=== PATIENT | male | born 1990 | race Caucasian/White ===

== ENCOUNTER 2020-03-20 05:10 | Inpatient (IN) | payer OTHER ==
[~2020-03-20] VITALS: Ht 177.8 cm; Wt 90.7 kg
[2020-03-20 05:12] VITALS: BP 122/78
[2020-03-20] MEDS ORDERED: PROAIR HFA8.5 GM INH (05:21)
[2020-03-20 05:47] LABS: HEMATOCRIT 46.4 % (42.0-52.0); HEMOGLOBIN 16.3 gm/dL (14.0-18.0); MCH 31.4 pg (26.0-34.0); MCHC 35.1 g/dL (28.0-37.0); MCV 89.4 fL (80.0-100.0); PLATELET COUNT 256 thou/uL (150-400); RDW 12.7 % (10.5-14.5); WBC 17.4 thou/uL (4.0-11.0)
[2020-03-20 05:55] LABS: CALCIUM 8.7 mg/dL (8.5-10.1); CREATININE 0.8 mg/dL (0.7-1.3); POTASSIUM 3.6 mmol/L (3.5-5.1)
[2020-03-20 06:01] LABS: ALBUMIN 3.1 g/dL (3.4-5.0); TOTAL BILIRUBIN 1.2 mg/dL (0.2-1.0); TOTAL PROTEIN 7.8 g/dL (6.4-8.2)
[2020-03-20 07:43] LABS: ABSOLUTE NEUTROPHILS 13.6 thou/uL (1.4-8.2)
[2020-03-20 12:09] VITALS: BP 134/74
[2020-03-20 12:16] VITALS: BP 121/79
--- NOTE | 2020-03-20 18:30 | NUR ---
Assumed patient care this afternoon, as he was admitted at approximately 1230 then immediately left the unit for a procedure. Patient has an apparent spider bite with abcess, he has cellulitis as well. Left lower extremity is affected. Patient has been eating well. He has a Temp of 100.2, has been having the "chills", fatique and weakness for the last few days. Wheezes auscultated in right lung fisher upon inspiration; all other fisher clear. Abdomen is soft and non-tender, BS x's 4. Patient complains of pain to LLE of a "level eight." He prefers IV Morphine push for his pain. Patient to have an I & D tomorrow am; to be NPO after midnight. Will report to on-coming nurse.
[2020-03-20 21:22] VITALS: BP 117/60
[2020-03-20 23:54] VITALS: BP 107/55
[2020-03-21 04:18] VITALS: BP 101/60
--- NOTE | 2020-03-21 06:10 | NUR ---
ssumed pt care at 1900. A/OX4,VSS. Up ad jackeline w/o problems. IVF infusing via RAC w/o problems. C/o left knee pain at beginning of shift medicated with Toradol with relief reported with no need for further pain meds. Area bursted open,draining sanguineous drainage;nonstick dsg applied. Pt encouraged to call for help as needed and doing so. Pt has been NPO since midnight for I&D of the knee. Will continue to monitor pt.
[2020-03-21 06:34] LABS: ABSOLUTE NEUTROPHILS 12.2 thou/uL (1.4-8.2); BASOPHILS 0.3 % (0.0-2.0); EOSINOPHILS 0.6 % (0.0-3.0); HEMATOCRIT 43.2 % (42.0-52.0); HEMOGLOBIN 14.8 gm/dL (14.0-18.0); MCH 30.9 pg (26.0-34.0); MCHC 34.2 g/dL (28.0-37.0); MCV 90.3 fL (80.0-100.0); MONOCYTES 11.5 % (1.0-8.0); PLATELET COUNT 277 thou/uL (150-400); POLYS 76.6 % (36.0-66.0); RBC 4.79 mil/uL (4.50-6.00); WBC 15.9 thou/uL (4.0-11.0)
[2020-03-21 06:52] LABS: CALCIUM 8.4 mg/dL (8.5-10.1); CREATININE 0.7 mg/dL (0.7-1.3); POTASSIUM 3.7 mmol/L (3.5-5.1)
[2020-03-21 07:37] VITALS: BP 106/69
--- NOTE | 2020-03-21 19:21 | NUR ---
Assumed pt care this am, received NPO went for I and D mid morning and got back late in the pm. Pain is managed with medications, parital relief is noted. POC followed with no signs or verbalizations of distress noted. came to visit this pm, changed the designated visitor for tommorrow to be his mother as per pt req.
[2020-03-21 20:14] VITALS: BP 108/61
--- NOTE | 2020-03-22 05:48 | NUR ---
Assumed pt care at 1900. A/OX4,VSS. Up ad jackeline WBAT to LLE. C/o pain 11/08 medicated with [place] with relief reported. Pt reports not able to sleep well tonight thinking too much about his kids and looking forward to dc soon. Dsg in place left knee C/D/I. Encouraged to call for help as needed. IVF fluids infusing w/o problems.
[2020-03-22 06:07] LABS: ABSOLUTE NEUTROPHILS 12.5 thou/uL (1.4-8.2); BASOPHILS 0.1 % (0.0-2.0); EOSINOPHILS 0.1 % (0.0-3.0); HEMATOCRIT 40.7 % (42.0-52.0); HEMOGLOBIN 13.8 gm/dL (14.0-18.0); LYMPHOCYTES 11.5 % (24.0-44.0); MCH 30.9 pg (26.0-34.0); MCHC 33.8 g/dL (28.0-37.0); MCV 91.4 fL (80.0-100.0); MONOCYTES 8.4 % (1.0-8.0); PLATELET COUNT 334 thou/uL (150-400); POLYS 79.9 % (36.0-66.0); RBC 4.45 mil/uL (4.50-6.00); RDW 12.8 % (10.5-14.5); WBC 15.6 thou/uL (4.0-11.0)
[2020-03-22 07:45] VITALS: BP 117/69
--- NOTE | 2020-03-22 14:01 | NUR ---
ORDERS RECEIVED FOR EVAL AND TREAT WBAT AND ROM AFTER 1ST DRESSING CHANGE. Pt HAS BEEN UP AMBULATING TO BATHROOM WITHOUT DIFFICULTY. DISCUSSED WITH Pt TO START PERFORMING FLEXION/EXTENSION OF LT KNEE AFTER THEY DO DRESSING CHANGE. FORMAL P.T. EVAL DEFERRED Pt HAS NO INSURANCE AND TRYING TO KEEP COST DOWN. Pt ACKNOWLEDGES UNDERSTANDING OF HIS EXERCISES AND FEELS SAFE FOR HOME WHEN THEY DISCHARGE HIM. NO CHARGE FOR THIS BRIEF VISIT. DISCUSSED WITH NURSING
[2020-03-22 15:20] VITALS: BP 133/61
[2020-03-22 19:41] VITALS: BP 116/63
--- NOTE | 2020-03-22 19:50 | NUR ---
Assumed pt care this am, pain is managed with medication, Surgical dressing is c/d/i. Wound dressing done as per Dr. Friedman orders, packing removed not able to repack as per pts request. POC followed, pain managed with medications, wound dressing teaching done to pt and mother. endorsed to the night nurse.
[2020-03-23 06:01] LABS: HEMATOCRIT 40.7 % (42.0-52.0); HEMOGLOBIN 14.1 gm/dL (14.0-18.0); MCH 31.5 pg (26.0-34.0); MCHC 34.7 g/dL (28.0-37.0); RBC 4.48 mil/uL (4.50-6.00); RDW 12.6 % (10.5-14.5); WBC 10.2 thou/uL (4.0-11.0)
[2020-03-23 06:04] LABS: CALCIUM 8.4 mg/dL (8.5-10.1); CREATININE 0.7 mg/dL (0.7-1.3); POTASSIUM 3.9 mmol/L (3.5-5.1)
--- NOTE | 2020-03-23 07:26 | NUR ---
ASSUMED PT CARE AROUND 1930. AXOX4. INDEPENDENT WITH ADLs. WOUND CARE RENDERED AT BEDSIDE. PRE-MEDICATED, BUT STILL VERBALIZED EXCRUCIATING PAIN WITH WOUND CARE. NO S/S ACUTE DISTRESS NOTED OR REPORTED AT THIS TIME. CARE TRANSFERRED TO AM RN AT THIS TIME.
[2020-03-23 08:24] VITALS: BP 128/69
[2020-03-23 15:02] VITALS: BP 125/76
--- NOTE | 2020-03-23 20:03 | NUR ---
Assumed pt care this am, VS stable, wound care and dressing change done. [place] signed off and recommends follow up in a week, informed Dr. Marr awaiting dc orders. [facility] no signs or verbalizations of distress noted. Diet and medications are well tolerated. Endorsed to the night nurse.
[2020-03-23 20:35] VITALS: BP 100/60
[2020-03-24 04:06] LABS: HIV ANTIBODY Non Reactive (Non Reactive)
--- NOTE | 2020-03-24 04:07 | NUR ---
VSS-AFEBRILE. LUNGS CLEAR-ROOM AIR. RIGHT KNEE DRESSING INTACT WITH NO DRAINAGE. PAIN WELL CONTROLLED WITH PO PAIN MEDICATION. CALLS APPROPRIATELY FOR ANY NEEDED ASSISTANCE.
[2020-03-24 07:46] VITALS: BP 118/76
[2020-03-24] MEDS ORDERED: ZYVOX600 MG PO ×2 (09:40→09:42)
[2020-03-24] MEDS ORDERED: HYDROCODON-ACE1 EAC7 PO (09:40)
--- NOTE | 2020-03-24 11:05 | NUR ---
Received awake on bed. Due medications given as prescribed, able to swallow meds w/o difficulty. On room air. Vital signs stable. A+Ox4. On regular diet- no nausea, no vomiting and no abdominal pain noted; tolerating diet well, Continent of bowel and bladder, able to go to the toilet independently. With D5NS at 100cc/hr, infusing well at R upper arm. With wound at L knee- dressing in place; C/D/I, dressing to be changed BID. Independent with ADLs. No complaints of pain made during assessment. To continue monitoring patient.
[2020-03-24 14:27] VITALS: BP 118/76
--- NOTE | 2020-03-24 15:19 | NUR ---
CARE TEAM INDICATED PT IS MEDICALLY STABLE TO DC HOME THIS DAY. PT WAS PROVIDED [facility] NET CLINIC PACKET AND HIS ZYVOX 600MG BID FOR 14 DAYS 20 PILLS WAS VOUCHERED THROUGH THE OP PHARMACY FOR PT TO TAKE HOME WITH HIM. COST $66.00. NO OTHER CM INTERVENTION INDICATED. CASE CLOSED.
--- NOTE | 2020-03-25 08:54 | O ---
[address] [address] OPERATIVE REPORT Name: MARTHA CASTRO Room #: 456-P [facility] IN M.R.#: [id number] Admission: 03/20/20 Attend Phys: Luke Killian MD Discharge: 03/24/20 Date of : 88 Report #: [id number] THIS REPORT FOR: cc: NO FAMILY PHYSICIAN or PCP NO FAMILY PHYSICIAN or PCP Castro Alvarado MD ~ CC: Luke Killian NO PCP DATE OF SERVICE: 03/21/2020 SERVICE: Orthopedics. FACILITY: [place]. SURGEON: Castro Alvarado MD. [employer] ASSEMBLER: Pari Coronel NP. PREOPERATIVE DIAGNOSES: 1. Left knee insect bite. 2. Left knee/thigh abscess. 3. Left leg cellulitis. 4. Sepsis. POSTOPERATIVE DIAGNOSES: 1. Left knee insect bite. 2. Left knee/thigh abscess. 3. Left leg cellulitis. 4. Sepsis. PROCEDURE: Incision and drainage with debridement to the muscle layer of left thigh/knee abscess. COMPLICATIONS: None. DRAINS: None. SPECIMENS: Cultures for aerobic, anaerobic, fungal. FINDINGS: 1. No deep necrosis. 2. Superficial purulence. 3. No penetration into the deep space or evidence of bone involvement. HISTORY: The patient is a 29-year-old gentleman who several days ago noted a [address] [address] OPERATIVE REPORT Name: MARTHA CASTRO Room #: 456-P DIS IN [place]#: [id number] Admission: 03/20/20 Attend Phys: Luke Killian MD Discharge: 03/24/20 Date of : 88 Report #: [id number] bite on his left knee that has progressed to a necrotic area and then developed an infection. He presented to the Emergency Room and he was admitted and placed on IV antibiotics. He has an MRI, which showed an abscess and cellulitis as well as myositis and he was indicated for surgical treatment. After the risks, benefits, alternatives, and indication of surgery were discussed with him in detail, he wished to move forward with the surgery. Risks include but not limited to pain, bleeding, infection, persistence, stiffness, need for further surgery, recurrence or persistence of the infection as well as complications related to anesthesia such as stroke, heart attack, pulmonary complications, thromboembolic disease and . Despite these risks, he wished to proceed. PROCEDURE IN DETAIL: After the left lower extremity was correctly identified in the preoperative holding area as the operative extremity, the patient was taken to the operating room where general anesthesia was induced without complication. He was padded appropriately. Prophylactic antibiotics were not administered today in surgery as he is on a scheduled regimen presently. Left leg was then prepped and draped in standard sterile fashion. Time-out procedure was performed. The boil on the anterolateral aspect of the knee overlying the lateral aspect of the patella was noted to be draining significant amount of purulence on the order of approximately 5 to 8 mL in total volume. This puncture wound was then extended proximally and distally with a sharp blade and the rest of the purulence egressed. This was well contained around the abscess area and although the cavity tracked laterally and proximally as well as slightly proximal medially, there was no evidence of deep loculated purulent fluid collection in this area. This was explored bluntly and then the Bean elevator was used to abrade the fat layer as well as the fascial layer all the way down to the vastus lateralis muscle, which was palpated and visualized. There was no significant purulence elsewhere and there was no involvement of the knee joint or the bone. Three liters of the irrigant was then thoroughly lavaged through the wound. Now, we took cultures of the pus. After half of the irrigation was completed, we sharply excised necrotic core around the skin incision and then deep as well where there was some fat necrosis, but otherwise there was no necrotic tissue, and then the remaining portion of the irrigation was completed. We then packed the wound working laterally and proximally and then the distal portion of the incision was closed with 2-0 nylon suture. A sterile dressing was applied. The patient was awakened from anesthesia and taken to recovery room in stable condition. No complications. All counts were recorded as correct. Postoperative wound care tomorrow. <ELECTRONICALLY SIGNED> By: Castro Alvarado MD 03/25/20 [id number] Castro Alvarado MD /nt
== END 2020-03-24 16:48 | disposition home or self-care (01) | DRG 854 ==
LOC: ER 05:10 → EROBS 07:49 → 4W 12:40
PROVIDERS: Emergency Medicine; Hospitalist; Nurse Practitioner; Orthopaedic Surgery Sports Medicine; ADMIT Hospitalist; ATTEND Hospitalist
PROC: 0J9P0ZZ Drainage of Left Lower Leg Subcutaneous Tissue and Fascia, Open Approach (ICD-10-PCS; principal; 2020-03-21)
DX: A41.9 Sepsis, unspecified organism (principal); L03.116 Cellulitis of left lower limb; L02.416 Cutaneous abscess of left lower limb; E46 Unspecified protein-calorie malnutrition; J45.909 Unspecified asthma, uncomplicated; F12.90 Cannabis use, unspecified, uncomplicated; S80.262A Insect bite (nonvenomous), left knee, initial encounter; Z20.828 Contact with and (suspected) exposure to other viral communicable diseases; B95.62 Methicillin resistant Staphylococcus aureus infection as the cause of diseases classified elsewhere; Z79.899 Other long term (current) drug therapy; Z68.28 Body mass index [BMI] 28.0-28.9, adult
CPT/HCPCS: 10040; 50010; 50101; 50386; 53078; 56525; 57091; 57103; 62110; 62900; 70005

== ENCOUNTER 2020-08-28 08:52 | Emergency (ER) | payer OTHER ==
[~2020-08-28] VITALS: Ht 177.8 cm; Wt 99.8 kg
[~2020-08-28 08:52] MED LIST: HYDROCODON-ACE1 EAC7 PO; PROAIR HFA8.5 GM INH; ZYVOX600 MG PO
[2020-08-28 08:59] VITALS: BP 139/94
[2020-08-28] MEDS ORDERED: BACTRIM DS TAB1 EAC1 PO (09:22)
[2020-08-28] MEDS ORDERED: KEFLEX500 M1 PO (09:22)
== END 2020-08-28 09:31 | disposition home or self-care (01) ==
LOC: ER 08:52
DX: L03.211 Cellulitis of face (principal); J45.909 Unspecified asthma, uncomplicated; Z79.899 Other long term (current) drug therapy